=== PATIENT | male | born 1950 | race Caucasian/White ===

== ENCOUNTER 2021-01-30 22:27 | Inpatient (IN) | payer MEDICARE, OTHER ==
[~2021-01-30] VITALS: Ht 182.9 cm; Wt 112.0 kg
[2021-01-30 22:53] LABS: HEMOGLOBIN 13.2 gm/dl (14.0-17.5); RED BLOOD COUNT 4.27 M/UL (4.20-5.50); WHITE BLOOD COUNT 6.9 K/UL (4.5-11.0)
[2021-01-31 05:39] LABS: HEMOGLOBIN 12.2 gm/dl (14.0-17.5); RED BLOOD COUNT 3.94 M/UL (4.20-5.50); WHITE BLOOD COUNT 8.2 K/UL (4.5-11.0)
[2021-01-31] MEDS ORDERED: CETIRIZINE HCL10 MG PO (09:34)
[2021-01-31] MEDS ORDERED: NITROGLYCERIN0.4 MG SL (09:34)
[2021-01-31] MEDS ORDERED: ISOSORBIDE MONO30 MG PO (09:35)
[2021-01-31] MEDS ORDERED: FLOMAX 0.4 MG0.4 MG PO (09:36)
[2021-01-31] MEDS ORDERED: VITAMIN D350 MCG PO (09:37)
[2021-01-31] MEDS ORDERED: ORAZINC PO (09:38)
[2021-01-31] MEDS ORDERED: ONE DAILY MULT1 EAC1 PO (09:39)
[2021-01-31] MEDS ORDERED: VOLTAREN ARTHRI20 GM TOP (09:52)
[2021-01-31] MEDS ORDERED: NEURONTIN600 MG PO (09:52)
[2021-01-31] MEDS ORDERED: ZESTRIL 40 MG T40 MG PO (09:53)
[2021-01-31] MEDS ORDERED: AMARYL1 MG PO (09:53)
[2021-01-31] MEDS ORDERED: LIPITOR TAB 2020 MG PO (09:53)
[2021-01-31] MEDS ORDERED: OMEPRAZOLE20 MG PO (09:54)
[2021-01-31] MEDS ORDERED: ECOTRIN81 MG PO (09:54)
[2021-01-31] MEDS ORDERED: EFFEXOR XR75 MG PO (09:54)
[2021-01-31] MEDS ORDERED: PROAIR HFA8.5 GM INH (09:55)
[2021-01-31] MEDS ORDERED: NORVASC10 MG PO (09:57)
[2021-02-01 07:30] LABS: HEMOGLOBIN 12.6 gm/dl (14.0-17.5); RED BLOOD COUNT 4.21 M/UL (4.20-5.50)
[2021-02-01 07:32] LABS: WHITE BLOOD COUNT 11.2 K/UL (4.5-11.0)
[2021-02-02 04:04] LABS: RED BLOOD COUNT 4.49 M/UL (4.20-5.50); WHITE BLOOD COUNT 13.4 K/UL (4.5-11.0)
--- NOTE | 2021-02-02 12:35 | NUR ---
PT SEEN PER RESPIRATORY AT 1140. HE REQUESTS PT BE SENT TO ICU. PT VITALS WNL RECENT DECLINE IN BEHAVIOR, AND O2 STATUS. ROOM IN ICU NOT AVAILABLE. CALLED WITH ROOM AT 1155. REPORT CALLED TO [facility]. RESPIRATORY CALLED FOR TRANSPORT ASSIST TO ICU ROOM 2108. 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 PATIENT ARRIVES IN UNIT AT 1211.
[2021-02-03 05:26] LABS: HEMOGLOBIN 13.1 gm/dl (14.0-17.5); RED BLOOD COUNT 4.23 M/UL (4.20-5.50)
[2021-02-03 05:28] LABS: WHITE BLOOD COUNT 7.4 K/UL (4.5-11.0)
[2021-02-03 05:43] LABS: BUN/CREATININE RATIO 30 (0-10)
[2021-02-04 05:29] LABS: HEMOGLOBIN 13.7 gm/dl (14.0-17.5); RED BLOOD COUNT 4.6 M/UL (4.20-5.50); WHITE BLOOD COUNT 8.6 K/UL (4.5-11.0)
[2021-02-04 05:51] LABS: BUN/CREATININE RATIO 31 (0-10)
[2021-02-05 07:28] LABS: RED BLOOD COUNT 4.53 M/UL (4.20-5.50); WHITE BLOOD COUNT 10.4 K/UL (4.5-11.0)
[2021-02-05 07:40] LABS: BUN/CREATININE RATIO 31 (0-10)
[2021-02-06 09:10] LABS: HEMOGLOBIN 14.5 gm/dl (14.0-17.5); RED BLOOD COUNT 4.66 M/UL (4.20-5.50); WHITE BLOOD COUNT 8.7 K/UL (4.5-11.0)
[2021-02-07 08:18] LABS: HEMOGLOBIN 14.5 gm/dl (14.0-17.5); RED BLOOD COUNT 4.67 M/UL (4.20-5.50); WHITE BLOOD COUNT 10.1 K/UL (4.5-11.0)
[2021-02-08 04:33] LABS: HEMOGLOBIN 13.1 gm/dl (14.0-17.5); RED BLOOD COUNT 4.3 M/UL (4.20-5.50); WHITE BLOOD COUNT 9.5 K/UL (4.5-11.0)
[2021-02-09 08:38] LABS: HEMOGLOBIN 12.4 gm/dl (14.0-17.5); RED BLOOD COUNT 4.07 M/UL (4.20-5.50); WHITE BLOOD COUNT 8.8 K/UL (4.5-11.0)
[2021-02-10 07:35] LABS: HEMOGLOBIN 12.1 gm/dl (14.0-17.5); RED BLOOD COUNT 3.99 M/UL (4.20-5.50)
[2021-02-11 05:41] LABS: HEMOGLOBIN 11.1 gm/dl (14.0-17.5); RED BLOOD COUNT 3.62 M/UL (4.20-5.50); WHITE BLOOD COUNT 7.3 K/UL (4.5-11.0)
--- NOTE | 2021-02-12 03:44 | NUR ---
NOTIFIED OF . JERMAINE WAS CALLED AT 0303, SPOKE TO WENCESLAO PITTS, RULED OUT FOR DONATION.
[2021-02-12 03:50] LABS: HEMOGLOBIN 8.5 gm/dl (14.0-17.5); RED BLOOD COUNT 2.77 M/UL (4.20-5.50); WHITE BLOOD COUNT 10.2 K/UL (4.5-11.0)
[2021-02-12 06:08] LABS: HEMOGLOBIN 8.7 gm/dl (14.0-17.5)
[2021-02-13 08:23] LABS: HEMOGLOBIN 7.3 gm/dl (14.0-17.5); WHITE BLOOD COUNT 7.8 K/UL (4.5-11.0)
[2021-02-13 08:24] LABS: RED BLOOD COUNT 2.49 M/UL (4.20-5.50)
[2021-02-13] MEDS ORDERED: LOPRESSOR 25 MG25 MG PO (13:17)
[2021-02-13] MEDS ORDERED: AMIODARONE HCL200 MG PO (13:17)
[2021-02-13] MEDS ORDERED: NITROGLYCERIN0.4 MG SL (13:20)
[2021-02-13] MEDS ORDERED: HUMALOG 10100 UNITS/ SC (13:20)
--- NOTE | 2021-02-14 03:46 | NUR ---
0316 02/14/2021 RECIEVED CRITICAL LAB OF HGB 6.6. CALLED YASSINE AND NOTIFIED HIM. ORDERS TO INFUSE 1 UNIT OF PR[facility], THEN REPEAT HGB.
--- NOTE | 2021-02-14 03:48 | NUR ---
BLOOD TRANSFUSION CONSENT SIGNED BY PATIENT. EXPLAINED PROCEDURE FOR GIVING BLOOD AND POSSIBLE EFFECTS. PT VERBALIZED UNDERSTANDING.
[2021-02-14 07:36] LABS: WHITE BLOOD COUNT 6.1 K/UL (4.5-11.0)
[2021-02-14 07:38] LABS: RED BLOOD COUNT 2.08 M/UL (4.20-5.50)
[2021-02-14 07:41] LABS: HEMOGLOBIN 6.4 gm/dl (14.0-17.5)
[2021-02-15 01:20] LABS: HEMOGLOBIN 7.7 gm/dl (14.0-17.5); WHITE BLOOD COUNT 6.9 K/UL (4.5-11.0)
[2021-02-15 01:31] LABS: RED BLOOD COUNT 2.51 M/UL (4.20-5.50)
[2021-02-16 04:02] LABS: HEMOGLOBIN 8.1 gm/dl (14.0-17.5); RED BLOOD COUNT 2.61 M/UL (4.20-5.50); WHITE BLOOD COUNT 6.5 K/UL (4.5-11.0)
--- NOTE | 2021-02-16 20:30 | NUR ---
REPORT RECEIVED FROM DAYSHIFT, PT O2 SATS 84-88% ON 100% BIPAP. DR LANE NOTIFIED, ORDERS RECEIVED TO PREP PT FOR INTUBATION AND TRANSFER TO ICU. RR 44/MIN; DR. METZGER NOTIFIED OF PT CONDITION AND TRANSFER.
[2021-02-16 22:14] LABS: HEMOGLOBIN 8.5 gm/dl (14.0-17.5); RED BLOOD COUNT 2.81 M/UL (4.20-5.50)
[2021-02-16 22:26] LABS: WHITE BLOOD COUNT 18.9 K/UL (4.5-11.0)
--- NOTE | 2021-02-17 01:37 | NUR ---
2014 PT BROUGHT FROM PCU TO ICU [address] PET[address]. 2034 ETOMIDATE AND OSWALDO GIVEN PER , RT AT BEDSIDE WITH 3 RN'S FOR INTUBATION, 2034 #8 ET TUBE PLACED,27 AT THE LIP, GOOD COLOR CHANGE ON CO2 DETECTOR, BILAT BREATH SOUNDS ON ASSCULTATION. DIPRIAVAN GTT STARTED AT 2039, 2046 CENTRAL LINE PLACED, 2101 16 FR OG PLACED, VERIFIED BY ASSCULATION AND XRAY. 2109 PLACED IN PRONE POSITION PER DR PETERS.2136 SEDATIONS OFF D/T DECREASE IN BP. 2138 PT WENT INTO ASYSTOLE, FLIPPED PT TO SUPINE POSITION CPR STARTED,DR PETERS AT BEDSIDE. SEE CODE SHEET FOR MEDS AND TITRATION SHEET FOR TITRATIONS. 2308 BP,HR AND O2 SAT DECREASING, NO PULSE ON PALPATION, PEA ON MONITOR, CPR STARTED, 2311 PULSE CHECK, NOTED TO HAVE A PULSE. AT 2349 PTS BP, HR AND O2 SAT STARTED TO DECREASE AGAIN, PT WAS FOUND TO HAVE NO PULSE,PEA ON THE MONITOR, CPR STARTED AND EPI 1MG GIVEN, 2353 PULSE CHECK, PULSE NOTED ON PALPATION, DR METZGER AT BEDSIDE AND TALKING WITH FAMILY, PT TO BE A DNR AT THIS TIME PER MD AND FAMILY, EPI GTT SATHISH.
[2021-02-17 06:47] LABS: HEMOGLOBIN 9.5 gm/dl (14.0-17.5); RED BLOOD COUNT 3.09 M/UL (4.20-5.50)
[2021-02-17 06:48] LABS: WHITE BLOOD COUNT 25.8 K/UL (4.5-11.0)
[2021-02-18 06:23] LABS: HEMOGLOBIN 8.9 gm/dl (14.0-17.5); RED BLOOD COUNT 2.95 M/UL (4.20-5.50); WHITE BLOOD COUNT 20.1 K/UL (4.5-11.0)
--- NOTE | 2021-02-18 23:04 | NUR ---
APROXIMATELY 6 SECONDS OF V. TACH OF MONITOR NOTED. BP 137/66 M.A.P. 82 .
--- NOTE | 2021-02-19 00:59 | NUR ---
DR METZGER IN ICU. ORDER OBTAINED FOR PRN TYLENOL OBTAINED FOR CURRENT TEMP >101 . ALSO, MADE AWARE OF PREVIOUS VENTRICULAR TACHYCARDIA.
[2021-02-19 04:07] LABS: HEMOGLOBIN 7.9 gm/dl (14.0-17.5); WHITE BLOOD COUNT 15.4 K/UL (4.5-11.0)
[2021-02-19 04:47] LABS: RED BLOOD COUNT 2.63 M/UL (4.20-5.50)
[2021-02-19 21:03] LABS: ACINETOBACTER BAUMANNII Not Detected (Negative); CANDIDA ALBICANS Not Detected (Negative); CANDIDA KRUSEI Not Detected (Negative); CANDIDA TROPICALIS Not Detected (Negative); ENTEROCOCCUS Not Detected (Negative); ESCHERICHIA COLI Not Detected (Negative); HAEMOPHILUS INFLUENZAE Not Detected (Negative); KLEBSIELLA OXYTOCA Not Detected (Negative); KLEBSIELLA PNEUMONIAE Not Detected (Negative); KPC-CARBAPENEM-RESISTANCE GENE Not Detected (Negative); PROTEUS Not Detected (Negative); PSEUDOMONAS AERUGINOSA Not Detected (Negative); SERRATIA MARCESANS Not Detected (Negative); STAPHYLOCOCCUS AUREUS Not Detected (Negative); STREP AGALACTIAE (GROUP B) Not Detected (Negative); STREP PYOGENES (GROUP A) Not Detected (Negative); STREPTOCOCCUS Not Detected (Negative); vanA/B (VANCOMYCIN RESIST GENE Not Detected (Negative)
[2021-02-19 22:27] LABS: mecA (METHICILLIN RESIST GENE DETECTED (Negative)
[2021-02-19 22:29] LABS: STAPHYLOCOCCUS DETECTED (Negative)
[2021-02-20 05:04] LABS: HEMOGLOBIN 8.1 gm/dl (14.0-17.5); RED BLOOD COUNT 2.67 M/UL (4.20-5.50); WHITE BLOOD COUNT 15.1 K/UL (4.5-11.0)
[2021-02-21 05:34] LABS: HEMOGLOBIN 7.2 gm/dl (14.0-17.5); WHITE BLOOD COUNT 14.3 K/UL (4.5-11.0)
[2021-02-21 05:55] LABS: RED BLOOD COUNT 2.34 M/UL (4.20-5.50)
[2021-02-22 05:18] LABS: HEMOGLOBIN 7.1 gm/dl (14.0-17.5); RED BLOOD COUNT 2.36 M/UL (4.20-5.50); WHITE BLOOD COUNT 12.9 K/UL (4.5-11.0)
[2021-02-23 08:40] LABS: HEMOGLOBIN 8.2 gm/dl (14.0-17.5); WHITE BLOOD COUNT 15.5 K/UL (4.5-11.0)
[2021-02-23 08:53] LABS: RED BLOOD COUNT 2.83 M/UL (4.20-5.50)
[2021-02-24 05:19] LABS: HEMOGLOBIN 8.3 gm/dl (14.0-17.5); RED BLOOD COUNT 2.74 M/UL (4.20-5.50); WHITE BLOOD COUNT 16.3 K/UL (4.5-11.0)
[2021-02-24 12:14] LABS: HBSAG SCREEN Negative (Negative); HEP A AB, IGM Negative (Negative); HEP B CORE AB, IGM Negative (Negative); HEP C VIRUS AB 0.1 (0.0-0.9)
[2021-02-25 05:36] LABS: HEMOGLOBIN 8.1 gm/dl (14.0-17.5); RED BLOOD COUNT 2.67 M/UL (4.20-5.50); WHITE BLOOD COUNT 17.3 K/UL (4.5-11.0)
[2021-02-26 04:43] LABS: HEMOGLOBIN 7.5 gm/dl (14.0-17.5); RED BLOOD COUNT 2.56 M/UL (4.20-5.50); WHITE BLOOD COUNT 18.2 K/UL (4.5-11.0)
[2021-02-27 05:42] LABS: RED BLOOD COUNT 2.69 M/UL (4.20-5.50); WHITE BLOOD COUNT 21.2 K/UL (4.5-11.0)
[2021-02-28 05:34] LABS: HEMOGLOBIN 7.8 gm/dl (14.0-17.5); RED BLOOD COUNT 2.58 M/UL (4.20-5.50); WHITE BLOOD COUNT 23.5 K/UL (4.5-11.0)
[2021-03-01 05:55] LABS: HEMOGLOBIN 7.5 gm/dl (14.0-17.5); RED BLOOD COUNT 2.48 M/UL (4.20-5.50)
[2021-03-01 06:29] LABS: WHITE BLOOD COUNT 32.6 K/UL (4.5-11.0)
[2021-03-02 04:39] LABS: RED BLOOD COUNT 2.24 M/UL (4.20-5.50); WHITE BLOOD COUNT 29.3 K/UL (4.5-11.0)
[2021-03-02 04:52] LABS: HEMOGLOBIN 6.8 gm/dl (14.0-17.5)
[2021-03-02 16:50] LABS: HEMOGLOBIN 8.4 gm/dl (14.0-17.5)
[2021-03-03 05:34] LABS: HEMOGLOBIN 7.7 gm/dl (14.0-17.5)
[2021-03-03 08:18] LABS: RED BLOOD COUNT 2.54 M/UL (4.20-5.50); WHITE BLOOD COUNT 33.1 K/UL (4.5-11.0)
== END 2021-03-03 19:20 | disposition expired | DRG 870 ==
LOC: ER1 22:27 → CDU 01-31 00:16 → PROG CARE 01-31 00:16 → CCU 01-31 00:16 → PROG CARE 01-31 11:11 → CCU 02-02 12:27 → PROG CARE 02-11 16:14 → CCU 02-16 20:00
PROVIDERS: Emergency Medicine; Internal Medicine; Internal Medicine Nephrology; Internal Medicine Pulmonary Disease; Surgery; ADMIT Internal Medicine
PROC: XW033E5 Introduction of Remdesivir Anti-infective into Peripheral Vein, Percutaneous Approach, New Technology Group 5 (ICD-10-PCS; 2021-01-31)
PROC: 3E0333Z Introduction of Anti-inflammatory into Peripheral Vein, Percutaneous Approach (ICD-10-PCS; 2021-01-31)
PROC: 8E0ZXY6 Isolation (ICD-10-PCS; 2021-01-31)
PROC: B24BZZZ Ultrasonography of Heart with Aorta (ICD-10-PCS; 2021-02-01)
PROC: 5A09557 Assistance with Respiratory Ventilation, Greater than 96 Consecutive Hours, Continuous Positive Airway Pressure (ICD-10-PCS; 2021-02-04)
PROC: 5A1955Z Respiratory Ventilation, Greater than 96 Consecutive Hours (ICD-10-PCS; principal; 2021-02-16)
PROC: 0BH18EZ Insertion of Endotracheal Airway into Trachea, Via Natural or Artificial Opening Endoscopic (ICD-10-PCS; 2021-02-16)
PROC: 5A1D70Z Performance of Urinary Filtration, Intermittent, Less than 6 Hours Per Day (ICD-10-PCS; 2021-02-16)
PROC: 05HM33Z Insertion of Infusion Device into Right Internal Jugular Vein, Percutaneous Approach (ICD-10-PCS; 2021-02-16)
PROC: B543ZZA Ultrasonography of Right Jugular Veins, Guidance (ICD-10-PCS; 2021-02-16)
PROC: 0DH67UZ Insertion of Feeding Device into Stomach, Via Natural or Artificial Opening (ICD-10-PCS; 2021-02-16)
PROC: B24BZZZ Ultrasonography of Heart with Aorta (ICD-10-PCS; 2021-02-19)
PROC: 3E033XZ Introduction of Vasopressor into Peripheral Vein, Percutaneous Approach (ICD-10-PCS; 2021-02-26)
PROC: 30233N1 Transfusion of Nonautologous Red Blood Cells into Peripheral Vein, Percutaneous Approach (ICD-10-PCS; 2021-03-02)
DX: A41.89 Other specified sepsis (principal); R65.21 Severe sepsis with septic shock; J80 Acute respiratory distress syndrome; U07.1 COVID-19; J12.82 Pneumonia due to coronavirus disease 2019; N17.0 Acute kidney failure with tubular necrosis; K72.00 Acute and subacute hepatic failure without coma; J15.9 Unspecified bacterial pneumonia; G93.41 Metabolic encephalopathy; N18.6 End stage renal disease; J44.0 Chronic obstructive pulmonary disease with (acute) lower respiratory infection; E87.2 Acidosis; K92.2 Gastrointestinal hemorrhage, unspecified; E87.1 Hypo-osmolality and hyponatremia; M79.81 Nontraumatic hematoma of soft tissue; D62 Acute posthemorrhagic anemia; I13.2 Hypertensive heart and chronic kidney disease with heart failure and with stage 5 chronic kidney disease, or end stage renal disease; I46.9 Cardiac arrest, cause unspecified; R57.0 Cardiogenic shock; Z51.5 Encounter for palliative care; Z66 Do not resuscitate; L89.892 Pressure ulcer of other site, stage 2; I08.3 Combined rheumatic disorders of mitral, aortic and tricuspid valves; G47.33 Obstructive sleep apnea (adult) (pediatric); E66.01 Morbid (severe) obesity due to excess calories; F41.9 Anxiety disorder, unspecified; F17.210 Nicotine dependence, cigarettes, uncomplicated; D69.6 Thrombocytopenia, unspecified; E11.65 Type 2 diabetes mellitus with hyperglycemia; D63.1 Anemia in chronic kidney disease; I50.810 Right heart failure, unspecified; E11.42 Type 2 diabetes mellitus with diabetic polyneuropathy; T38.0X5A Adverse effect of glucocorticoids and synthetic analogues, initial encounter; E83.39 Other disorders of phosphorus metabolism; N40.0 Benign prostatic hyperplasia without lower urinary tract symptoms; I48.0 Paroxysmal atrial fibrillation; J30.2 Other seasonal allergic rhinitis; I27.20 Pulmonary hypertension, unspecified; R45.1 Restlessness and agitation; Z99.2 Dependence on renal dialysis; Z79.4 Long term (current) use of insulin; Z79.01 Long term (current) use of anticoagulants; Z68.36 Body mass index [BMI] 36.0-36.9, adult
CPT/HCPCS: ECHO; 31500; 36415; 36430; 36600; 71045; 71250; 71260; 74018; 78580; 80048; 80053; 80074; 80202; 81001; 82436; 82550; 82553; 82565; 82728; 82800; 82803; 82962; 83036; 83540; 83550; 83605; 83735; 83874; 83880; 83935; 84100; 84132; 84133; 84300; 84439; 84443; 84484; 85014; 85018; 85025; 85027; 85379; 85652; 86140; 86850; 86900; 86901; 86920; 87040; 87045; 87046; 87077; 87150; 87186; 90935; 90937; 93005; 93306; 93931; 93970; 94002; 94003; 94640; 94660; 94664; 94760; 97110; 97110-GP-CQ; 97116-GP-CQ; 97163; 97166; 97530; 97530-GP-CQ; 99285; A6212; A9540; C1751; C9113; J0171; J0456; J0692; J0696; J1100; J1644; J1650; J1940; J2020; J2060; J2185; J2250; J2370; J2704; J3010; J3370; J3475; J3486; J7030; J7040; J7042; J7050; J7070; P9016; P9047; Q9967